=== PATIENT | female | born 1990 | race Caucasian/White ===

== ENCOUNTER 2018-06-25 15:46 | Emergency (ER) | payer OTHER ==
[~2018-06-25] VITALS: Ht 157.5 cm; Wt 67.7 kg
[2018-06-25] MEDS ORDERED: MOTRIN800 MG PO (16:45)
[2018-06-25] MEDS ORDERED: FLEXERIL10 MG PO (16:45)
[2018-06-25 17:23] VITALS: BP 130/84
== END 2018-06-25 17:25 | disposition home or self-care (01) ==
LOC: EME 15:46
PROC: 0HQ1XZZ Repair Face Skin, External Approach (ICD-10-PCS; principal; 2018-06-25)
DX: S01.81XA Laceration without foreign body of other part of head, initial encounter (principal); M54.9 Dorsalgia, unspecified; M62.838 Other muscle spasm; V43.52XA Car driver injured in collision with other type car in traffic accident, initial encounter; Y92.410 Unspecified street and highway as the place of occurrence of the external cause; M41.9 Scoliosis, unspecified
CPT/HCPCS: 72070; 99281; 99284